=== PATIENT | female | born 1935 | race Caucasian/White ===

== ENCOUNTER 2018-03-10 20:40 | Emergency (ER) | payer MEDICARE, OTHER ==
[2018-03-10 21:03] VITALS: BP 147/65
[2018-03-10] MEDS ORDERED: Sodium Chloride 0.9% 1,000 ML IV ONE ×2 (21:26→23:21)
--- NOTE | 2018-03-10 22:53 | EDM.PDOC ---
ED HPI GENERAL MEDICAL PROBLEM - General Chief Complaint: General Stated Complaint: WEAKNESS Time Seen by Provider: 03/10/18 21:33 Source of Information: Reports: Patient, Family () History Limitations: Reports: No Limitations - History of Present Illness INITIAL COMMENTS - FREE TEXT/NARRATIVE: 83-year-old female presents for evaluation and treatment of weakness and fatigue. Patient reports around 1300 today she started feeling more weak and fatigued. Reports that she couldn't get up from using the bathroom. She denies any fevers, chills, chest pain, shortness of breath, headaches, vomiting, diarrhea or any cough. She reports that she has been experiencing some nausea and increased urinary urgency. No dysuria. 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 She was diagnosed with this in 2012. She has been on chemotherapy for the last 5 years. About a month ago she stopped her chemotherapy and underwent procedure where she had implanted pellets of chemotherapy directly in areas of the masses. She then had embolism to the areas of the tumor. She reports since then she has appreciated fatigue and decreased appetite. Her oncologist is Dr. Cid in [place]. Plan to have a CT scan this coming week. She is supposed to have a PET scan 90 days after the procedure for further evaluation. Reports about one week ago she was not feeling well. She presented to the infusion center and she received fluids. States that she had labs and a chest x- ray done which were all within normal limits. - Related Data Allergies Allergy/AdvReac Type Severity Reaction Status Date / Time dexamethasone Allergy Headache Verified 03/10/18 20:54 naproxen sodium [From Aleve] Allergy Anaphylactic Verified 03/10/18 20:54 Shock Sulfa (Sulfonamide Allergy Hives Verified 03/10/18 20:54 Antibiotics) Home Meds: Home Meds Levothyroxine 50 mcg PO DAILY 12/15/13 [History] Allopurinol [Zyloprim] 300 mg PO DAILY 01/10/16 [History] Aspirin 81 mg PO DAILY 01/10/16 [History] Calcium Carbonate [Calcium] 500 mg PO BID 01/10/16 [History] Gabapentin [Neurontin] 600 mg PO TID 01/10/16 [History] Metoprolol Succinate [Toprol XL] 75 mg PO DAILY 01/10/16 [History] Hewitt-3 Fatty Acids/DHA/EPA [[place] Blue Dha Cap] 1,000 mg PO DAILY [History] Potassium Chloride 20 meq PO DAILY 01/10/16 [History] atorvaSTATin [Lipitor] 10 mg PO DAILY 01/10/16 [History] metFORMIN [Glucophage XR] 500 mg PO BID 01/10/16 [History] oxyCODONE 1 tab PO TID PRN 03/10/18 [History] Cephalexin [Keflex] 500 mg PO BID #10 capsule 03/11/18 [Rx] Past Medical History HEENT History: Reports: Impaired Vision Cardiovascular History: Reports: CAD, Heart Failure, Hypertension Musculoskeletal History: Reports: Arthritis, Gout Endocrine/Metabolic History: Reports: Diabetes, Type II Oncologic (Cancer) History: Reports: Liver, Pancreatic Other Oncologic History: 06/2013 - Past Surgical History HEENT Surgical History: Reports: Cataract Surgery, Tonsillectomy GI Surgical History: Reports: Appendectomy Female Surgical History: Reports: Hysterectomy 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 Denies: Fever, Chills HEENT: Denies: Eye Pain, Throat Pain Respiratory: Denies: Shortness of Breath, Cough Cardiovascular: Denies: Chest Pain GI/Abdominal: Reports: Nausea. Denies: Abdominal Pain, Diarrhea, Vomiting : Reports: Urgency. Denies: Dysuria ED EXAM, GENERAL - Physical Exam Exam: See Below Exam Limited By: No Limitations General Appearance: Alert, WD/WN, No Apparent Distress, Other (Chronically ill- appearing) Ears: Normal External Exam, Normal Canal, Hearing Grossly Normal, Normal TMs Nose: Normal Inspection Throat/Mouth: Normal Inspection, Normal Lips, Normal Voice, No Airway Compromise Respiratory/Chest: No Respiratory Distress, Lungs Clear, Normal Breath Sounds Cardiovascular: Normal Peripheral Pulses, Regular Rate, Rhythm, No Murmur GI/Abdominal: Soft, Non-Tender Neurological: Alert, Oriented, Normal Cognition Psychiatric: Normal Affect, Normal Mood Skin Exam: Warm, Dry, Normal Color EKG INTERPRETATION EKG Date: 03/10/18 Time: 21:35 Rhythm: NSR Rate (Beats/Min): 80 [place]: Normal P-Wave: Present QRS: Normal ST-T: Normal QT: Normal EKG Interpretation Comments: Sinus rhythm at 80bpm. T wave inversion in V1-V4 - can not rule out ischemia. Also III and AVF. Decreased voltage limb lead and precordial leads. Initial poor 'r' progression. First degree AV block. Reviewed by myself and Dr. Felton. Course - Vital Signs Last Recorded V/S: Last Vital Signs Temp 99.6 F 03/10/18 21:00 Pulse 80 03/10/18 21:00 Resp 20 03/10/18 21:00 BP 147/65 H 03/10/18 21:00 Pulse Ox 96 03/10/18 21:00 - Orders/Labs/Meds Labs: Laboratory Tests 03/10/18 03/10/18 03/10/18 Range/Units 22:05 22:05 22:05 WBC 9.47 (3.98-10.04) K/mm3 RBC 3.71 L (3.98-5.22) M/mm3 Hgb 10.6 L (11.2-15.7) gm/L Hct 31.7 L (34.1-44.9) % MCV 85.4 (79.4-94.8) fl MCH 28.6 (25.6-32.2) pg MCHC 33.4 (32.2-35.5) g/dl RDW Std Deviation 52.7 H (36.4-46.3) fL Plt Count 317 (182-369) K/mm3 MPV 10.9 (9.4-12.3) fl Neutrophils % (Manual) 66 H (40-60) % Band Neutrophils % 0 (0-10) % Lymphocytes % (Manual) 25 (20-40) % Atypical Lymphs % 0 % Monocytes % (Manual) 4 (2-10) % Eosinophils % (Manual) 5 (0.7-5.8) % Basophils % (Manual) 0 L (0.1-1.2) Platelet Estimate Adequate Polychromasia 1+ slight Anisocytosis 1+ slight RBC Morph Comment Not Reportable Sodium 132 L (136-145) mEq/L Potassium 3.9 (3.5-5.1) mEq/L Chloride 97 L (98-107) mEq/L Carbon Dioxide 27 (21-32) mEq/L Anion Gap 11.9 (5-15) BUN 8 (7-18) mg/dL Creatinine 0.8 (0.55-1.02) mg/dL Est Cr Clr Drug Dosing 41.62 mL/min Estimated GFR (MDRD) > 60 (>60) mL/min BUN/Creatinine Ratio 10.0 L (14-18) Glucose 122 H (83-115) mg/dL Lactic Acid (0.4-2.0) mmol/L Calcium 9.2 (8.5-10.1) mg/dL Phosphorus 3.7 (2.6-4.7) mg/dL Magnesium 1.7 L (1.8-2.4) mg/dl Total Bilirubin 0.5 (0.2-1.0) mg/dL AST 257 H (15-37) U/L ALT 160 H (14-59) U/L Alkaline Phosphatase 109 (46-116) U/L Troponin I < 0.017 (0.00-0.056) ng/mL Total Protein 7.0 (6.4-8.2) g/dl Albumin 3.0 L (3.4-5.0) g/dl Globulin 4.0 gm/dL Albumin/Globulin Ratio 0.8 L (1-2) Urine Color (Yellow) Urine Appearance (Clear) Urine pH (5.0-8.0) Ur Specific Cecil (1.005-1.030) Urine Protein (Negative) Urine Glucose (UA) (Negative) Urine Ketones (Negative) Urine Occult Blood (Negative) Urine Nitrite (Negative) Urine Bilirubin (Negative) Urine Urobilinogen (0.2-1.0) Ur Leukocyte Esterase (Negative) Urine RBC (0-5) /hpf Urine WBC (0-5) /hpf Ur Epithelial Cells (0-5) /hpf Urine Bacteria (FEW) /hpf Urine Mucus (FEW) /hpf 03/10/18 03/10/18 Range/Units 22:15 23:04 WBC (3.98-10.04) K/mm3 RBC (3.98-5.22) M/mm3 Hgb (11.2-15.7) gm/L Hct (34.1-44.9) % MCV (79.4-94.8) fl MCH (25.6-32.2) pg MCHC (32.2-35.5) g/dl RDW Std Deviation (36.4-46.3) fL Plt Count (182-369) K/mm3 MPV (9.4-12.3) fl Neutrophils % (Manual) (40-60) % Band Neutrophils % (0-10) % Lymphocytes % (Manual) (20-40) % Atypical Lymphs % % Monocytes % (Manual) (2-10) % Eosinophils % (Manual) (0.7-5.8) % Basophils % (Manual) (0.1-1.2) Platelet Estimate Polychromasia Anisocytosis RBC Morph Comment Sodium (136-145) mEq/L Potassium (3.5-5.1) mEq/L Chloride (98-107) mEq/L Carbon Dioxide (21-32) mEq/L Anion Gap (5-15) BUN (7-18) mg/dL Creatinine (0.55-1.02) mg/dL Est Cr Clr Drug Dosing mL/min Estimated GFR (MDRD) (>60) mL/min BUN/Creatinine Ratio (14-18) Glucose (83-115) mg/dL Lactic Acid 0.7 (0.4-2.0) mmol/L Calcium (8.5-10.1) mg/dL Phosphorus (2.6-4.7) mg/dL Magnesium (1.8-2.4) mg/dl Total Bilirubin (0.2-1.0) mg/dL AST (15-37) U/L ALT (14-59) U/L Alkaline Phosphatase (46-116) U/L Troponin I (0.00-0.056) ng/mL Total Protein (6.4-8.2) g/dl Albumin (3.4-5.0) g/dl Globulin gm/dL Albumin/Globulin Ratio (1-2) Urine Color Yellow (Yellow) Urine Appearance Clear (Clear) Urine pH 6.5 (5.0-8.0) Ur Specific Cecil 1.015 (1.005-1.030) Urine Protein Negative (Negative) Urine Glucose (UA) Negative (Negative) Urine Ketones Negative (Negative) Urine Occult Blood 1+ H (Negative) Urine Nitrite Negative (Negative) Urine Bilirubin Negative (Negative) Urine Urobilinogen 0.2 (0.2-1.0) Ur Leukocyte Esterase 1+ H (Negative) Urine RBC 0-5 (0-5) /hpf Urine WBC 5-10 H (0-5) /hpf Ur Epithelial Cells 0-5 (0-5) /hpf Urine Bacteria Few (FEW) /hpf Urine Mucus Not seen (FEW) /hpf Meds: Medications Discontinued Medications Generic Name Dose Route Start Last Admin Trade Name Jean PRN Reason Stop Dose Admin Heparin Sodium (Porcine) Confirm 03/10/18 22:05 Heparin Lock Flush 100 Units/Ml Administered 03/10/18 22:06 Dose 500 units .ROUTE .STK-MED ONE Heparin Sodium (Porcine) Confirm 03/11/18 01:20 Heparin Lock Flush 100 Units/Ml Administered 03/11/18 01:21 Dose 500 units .ROUTE .STK-MED ONE Sodium Chloride 1,000 mls @ 999 mls/hr 03/10/18 21:26 03/10/18 22:15 Normal Saline IV 03/10/18 22:26 999 mls/hr ONETIME ONE Administration Magnesium Sulfate/Dextrose 1 100 mls @ 100 mls/hr 03/10/18 22:49 03/10/18 23: 09 gm/ Premix IV 03/10/18 23:48 100 mls/hr ONETIME ONE Administration Sodium Chloride 1,000 mls @ 999 mls/hr 03/10/18 23:21 03/10/18 23:58 Normal Saline IV 03/11/18 00:21 999 mls/hr ONETIME ONE Administration Ceftriaxone Sodium 2 gm/ 100 mls @ 100 mls/hr 03/10/18 23:30 03/11/18 00:14 Sodium Chloride IV 03/11/18 00:29 100 mls/hr ONETIME ONE Administration - Radiology Interpretation Free Text/Narrative:: chest 1 view shows no acute intrathoracic process - Re-Assessments/Exams Free Text/Narrative Re-Assessment/Exam: 03/11/18 00:26 I reviewed the labs, EKG and imaging with the patient. I will treat her for UTI given her symptoms and 1+ leuks on UA. Urine has been sent for culture. Blood cultures are pending. She has received 1 g IV magnesium. Will start 2 g IV Rocephin give her second bolus of fluids. I discussed her disposition. I feel it would be appropriate for her to come into the hospital due to her weakness. She declines and would like to go home tonight. I will send her home with some Keflex and close follow-up in the clinic. Discharge instructions as documented. Departure - Departure Time of Disposition: 00:30 Disposition: Home, Self-Care 01 Condition: Fair Clinical Impression: Weakness UTI (urinary tract infection) Qualifiers: Urinary tract infection type: acute cystitis Hematuria presence: without hematuria Qualified Code(s): N30.00 - Acute cystitis without hematuria - Discharge Information *PRESCRIPTION DRUG MONITORING PROGRAM REVIEWED*: No *COPY OF PRESCRIPTION DRUG MONITORING REPORT IN PATIENT SANTIAGO: No Prescriptions: Cephalexin [Keflex] 500 mg PO BID #10 capsule Instructions: Weakness, [id number], Urinary Tract Infection, Adult Referrals: Mariola Alarcon NP [Primary Care Provider] - Mike Cid MD [Ordering Only Provider] - Forms: ED Department Discharge Additional Instructions: Go home and rest. Make sure you are drinking plenty of fluids. Keflex 1 tab PO bid x 5 days. Follow-up with your PCP this week for a recheck of your symptoms. Please return to the ER should your symptoms change or worsen.
[2018-03-10] MEDS ORDERED: cefTRIAXone 2 GM in Sodium Chloride 0.9% 100 ML IV ONE (23:30)
--- NOTE | 2018-03-13 12:08 | CR ---
Chest: Portable view of the chest is obtained. Comparison: Prior chest x-ray of 02/05/14. Heart is slightly enlarged. Lungs are clear without acute parenchymal change. Infusion port is seen entering from the left side. Bony structures show scoliosis and mild degenerative change within the spine. Surgical clips are seen at the base of the neck. Findings compatible with chronic rotator cuff tear is seen within the right shoulder. Impression: 1. Findings as noted above. Nothing acute is appreciated. Diagnostic code #2
== END 2018-03-11 01:37 | disposition home or self-care (01) ==
LOC: JD.ED 20:40
DX: N30.00 Acute cystitis without hematuria (principal); R53.1 Weakness; C25.9 Malignant neoplasm of pancreas, unspecified; C78.7 Secondary malignant neoplasm of liver and intrahepatic bile duct; I11.0 Hypertensive heart disease with heart failure; I50.9 Heart failure, unspecified; E11.9 Type 2 diabetes mellitus without complications; Z87.891 Personal history of nicotine dependence; Z79.82 Long term (current) use of aspirin; Z79.84 Long term (current) use of oral hypoglycemic drugs; Z88.2 Allergy status to sulfonamides; Z79.899 Other long term (current) drug therapy; Z88.8 Allergy status to other drugs, medicaments and biological substances
CPT/HCPCS: 36415; 71045; 80053; 81001; 83605; 83735; 84100; 84484; 85007; 85027; 87040; 87086; 93005; 96361; 96365; 96367; 99285; J0696; J3475; J7030; J7040

== ENCOUNTER 2018-10-07 13:55 | Emergency (ER) | payer MEDICARE, OTHER ==
[2018-10-07 14:23] VITALS: BP 117/90
[2018-10-07] MEDS ORDERED: Sodium Chloride 0.9% 500 ML IV ONE (14:29)
--- NOTE | 2018-10-07 14:35 | EDM.PDOC ---
ED HPI GENERAL MEDICAL PROBLEM - General Chief Complaint: Cardiovascular Problem Stated Complaint: RAPID HEART RATE Time Seen by Provider: 10/07/18 14:14 Source of Information: Reports: Patient History Limitations: Reports: No Limitations - History of Present Illness INITIAL COMMENTS - FREE TEXT/NARRATIVE: Patient is a 83-year-old female with a history of stage IV pancreatic cancer who presents ED complaining of shortness of breath with exertion, intermittent chest pressure, and a fast heart rate. Patient states Sunday evening she awoke with a sensation her heart was beating fast. Stated her heart beat was pounding and developed mild pressure to her midsternal region. The pressure to the chest has diminished. She has no chest pain with admission. States she is still short of breath with exertion. She recently started a new chemotherapy medication this past Sunday and received her first dose. She developed a rash and was started on a Medrol Dosepak. She completed a Medrol Dosepak with no complications. She does have a history of adverse reaction with dexamethasone . States she gets a headache. She has slight headache at this time. She has a previous history with similar symptoms of a fast heart rate that went away on its own accord. She does have a significant history of coronary disease and per retail selling floor leader states she would benefit from cardiac stent placement. Due to her cancer hx this has not been able to be completed. She also notes sensation with night sweats. She also has a history of hypertension, hypercholesteremia, and borderline diabetes. She has no history of DVT or PE. She denies any pain or swelling to her lower extremities. Denies any orthopnea or PND. She has trace edema noted to lower extremities. Denies any increased weight. She was diagnosed with pancreatic cancer 5 years ago. She also denies cough, hemoptysis , abdominal pain, dysuria, hematuria, dark tarry stools, bloody stools, or any additional complaints. - Related Data Allergies Allergy/AdvReac Type Severity Reaction Status Date / Time dexamethasone Allergy Headache Verified 10/07/18 19:14 naproxen sodium [From Aleve] Allergy Anaphylactic Verified 10/07/18 19:14 Shock Sulfa (Sulfonamide Allergy Hives Verified 10/07/18 19:14 Antibiotics) Home Meds: Home Meds Levothyroxine 50 mcg PO DAILY 12/15/13 [History] Allopurinol [Zyloprim] 300 mg PO DAILY 01/10/16 [History] Aspirin 81 mg PO DAILY 01/10/16 [History] Metoprolol Succinate [Toprol XL] 50 mg PO DAILY 01/10/16 [History] Potassium Chloride 10 meq PO BID 01/10/16 [History] atorvaSTATin [Lipitor] 10 mg PO DAILY 01/10/16 [History] metFORMIN [Glucophage XR] 500 mg PO DAILY 01/10/16 [History] oxyCODONE 5 mg PO Q6H PRN 03/10/18 [History] Calcium Citrate/Vitamin D3 [Calcium Citrate - Vit D3 Tab] 250 - 315 mg PO DAILY 10/07/18 [History] Capecitabine 1,000 mg PO PCDINNER 10/07/18 [History] Capecitabine 1,500 mg PO PCBREAKFAST 10/07/18 [History] Garlic [Garlic Oil] 1,000 mg PO DAILY 10/07/18 [History] Ketamine Hcl [Ketamine Oral Solution Compound] 5 ml PO QID 10/07/18 [History] Lidocaine Viscous 5 ml PO Q6H PRN 10/07/18 [History] Loperamide [Imodium] 4 mg PO ASDIRECTED PRN 10/07/18 [History] Losartan [Cozaar] 50 mg PO BID 10/07/18 [History] Megestrol [Megace 40 MG/ML Susp] 800 mg PO DAILY 10/07/18 [History] Ondansetron [Zofran ODT] 4 mg PO TID PRN 10/07/18 [History] amLODIPine Besylate [Amlodipine Besylate] 5 mg PO DAILY 10/07/18 [History] Past Medical History HEENT History: Reports: Impaired Vision Cardiovascular History: Reports: CAD, Heart Failure, Hypertension Musculoskeletal History: Reports: Arthritis, Gout Endocrine/Metabolic History: Reports: Diabetes, Type II Oncologic (Cancer) History: Reports: Liver, Pancreatic Other Oncologic History: 06/2013 - Past Surgical History HEENT Surgical History: Reports: Cataract Surgery, Tonsillectomy GI Surgical History: Reports: Appendectomy Female Surgical History: Reports: Hysterectomy Endocrine Surgical History: Reports: Pituitary Tumor Resection Musculoskeletal Surgical History: Reports: Knee Replacement Social & Family History - Family History Cardiac: Reports: Bypass, CAD Neurological: Reports: CVA - Caffeine Use Caffeine Use: Reports: Coffee, Tea ED ROS GENERAL - Review of Systems Review Of Systems: See Below Constitutional: Reports: Fever, Chills, Malaise, Decreased Appetite HEENT: Reports: No Symptoms Respiratory: Reports: Shortness of Breath. Denies: Pleuritic Chest Pain, Cough , Sputum, Hemoptysis Cardiovascular: Reports: Chest Pain (pressure), Dyspnea on Exertion. Denies: Edema, Lightheadedness, Orthopnea, Palpitations, PND, Syncope GI/Abdominal: Reports: No Symptoms : Reports: No Symptoms Musculoskeletal: Reports: No Symptoms Neurological: Reports: No Symptoms ED EXAM, GENERAL - Physical Exam Exam: See Below Exam Limited By: No Limitations General Appearance: Alert, WD/WN, No Apparent Distress Eye Exam: Bilateral Eye: Normal Inspection Ears: Hearing Grossly Normal Nose: Normal Inspection Throat/Mouth: Normal Voice, No Airway Compromise, Other (moist oral mucosa. ) Neck: Normal Inspection, Supple Respiratory/Chest: No Respiratory Distress, Lungs Clear, Normal Breath Sounds, No Accessory Muscle Use, Chest Non-Tender, Other (Maris Cath left chest. ) Cardiovascular: Normal Peripheral Pulses, No Edema, No Murmur (obvious), Irregularly Irregular Peripheral Pulses: 2+: Radial (L), Radial (R) GI/Abdominal: Normal Bowel Sounds, Soft, Non-Tender, No Organomegaly, No Distention Back Exam: Normal Inspection Extremities: Normal Inspection, Normal Range of Motion, Non-Tender, No Pedal Edema Neurological: Alert, Oriented, CN II-XII Intact, Normal Cognition, No Motor/ Sensory Deficits Psychiatric: Normal Affect, Normal Mood Course - Vital Signs Last Recorded V/S: Last Vital Signs Temp 96.6 F 10/07/18 14:05 Pulse 134 H 10/07/18 14:05 Resp 20 10/07/18 14:05 BP 117/90 10/07/18 14:05 Pulse Ox 100 10/07/18 14:05 Orthostatic Blood Pressure [ 102/70 Standing] Orthostatic Blood Pressure [ 116/99 Sitting] Orthostatic Blood Pressure [ 120/80 Supine] - Orders/Labs/Meds Orders: Active Orders 24 hr Category Date Time Status EKG 12 Lead [EKG Documentation Completion] [RC] STAT Care 10/07/18 18:07 Active EKG Documentation Completion [RC] STAT Care 10/07/18 14:28 Active EKG Documentation Completion [RC] STAT Care 10/07/18 19:15 Active Orthostatic Vital Signs [RC] ASDIRECTED Care 10/07/18 14:28 Active Peripheral IV Care [RC] . DIRECTED Care 10/07/18 14:29 Active CBC W/O DIFF,HEMOGRAM [HEME] MOTH@0700 Lab 10/10/18 07:00 Ordered CBC W/O DIFF,HEMOGRAM [HEME] MOTH@0700 Lab 10/14/18 07:00 Ordered CBC W/O DIFF,HEMOGRAM [HEME] MOTH@0700 Lab 10/17/18 07:00 Ordered CBC W/O DIFF,HEMOGRAM [HEME] MOTH@0700 Lab 10/21/18 07:00 Ordered CBC W/O DIFF,HEMOGRAM [HEME] MOTH@0700 Lab 10/24/18 07:00 Ordered CBC W/O DIFF,HEMOGRAM [HEME] MOTH@0700 Lab 10/28/18 07:00 Ordered CULTURE BLOOD [BC] Stat Lab 10/07/18 15:05 Received CULTURE BLOOD [BC] Stat Lab 10/07/18 15:11 Received INR,PT,PROTHROMBIN TIME [COAG] Stat Lab 10/07/18 20:34 Received PTT,PARTIAL THROMBOPLSTIN TIME [COAG] Stat Lab 10/07/18 20:34 Received Diltiazem 125 mg Med 10/07/18 17:30 Active Sodium Chloride 0.9% [Normal Saline] 100 ml IV TITRATE Heparin Sodium/D5W [Heparin 25,000 Units in D5W 500 ML] Med 10/07/18 19:59 Active 25,000 units in 500 ml IV ASDIRECTED Sodium Chloride 0.9% [Normal Saline] 100 ml Med 10/07/18 16:30 Active IV ASDIRECTED Sodium Chloride 0.9% [Saline Flush] Med 10/07/18 14:29 Active 10 ml FLUSH ASDIRECTED PRN Blood Culture x2 Reflex Set [OM.PC] Stat Oth 10/07/18 14:31 Ordered Peripheral IV Insertion Adult [OM.PC] Routine Oth 10/07/18 14:29 Ordered Medication Orders Sodium Chloride (Normal Saline) 100 mls @ 60 mls/hr IV ASDIRECTED ZENOBIA Last Admin: 10/07/18 16:49 Dose: 60 mls/hr Diltiazem HCl 125 mg/ Sodium (Chloride) 125 mls @ 5 mls/hr IV TITRATE ZENOBIA; Protocol Last Admin: 10/07/18 18:15 Dose: 5 mg/hr, 5 mls/hr Heparin Sodium/Dextrose (Heparin 25,000 Units In D5w 500 Ml) 25,000 units in 500 mls @ 26.127 mls/hr IV ASDIRECTED ONE Stop: 10/08/18 15:07 Last Admin: 10/07/18 20:31 Dose: 18 units/kg/hr, 26.127 mls/hr Sodium Chloride (Saline Flush) 10 ml FLUSH ASDIRECTED PRN PRN Reason: Keep Vein Open Last Admin: 10/07/18 16:49 Dose: 10 ml Admin: 10/07/18 16:21 Dose: 10 ml Labs: Laboratory Tests 10/07/18 10/07/18 10/07/18 Range/Units 15:05 15:05 15:05 WBC 12.96 H (3.98-10.04) K/mm3 RBC 3.43 L (3.98-5.22) M/mm3 Hgb 12.4 (11.2-15.7) gm/L Hct 36.8 (34.1-44.9) % MCV 107.3 H (79.4-94.8) fl MCH 36.2 H (25.6-32.2) pg MCHC 33.7 (32.2-35.5) g/dl RDW Std Deviation 72.8 H (36.4-46.3) fL Plt Count 302 (182-369) K/mm3 MPV 11.9 (9.4-12.3) fl Neutrophils % (Manual) 65 H (40-60) % Band Neutrophils % 0 (0-10) % Lymphocytes % (Manual) 25 (20-40) % Atypical Lymphs % 0 % Monocytes % (Manual) 10 (2-10) % Eosinophils % (Manual) 0 L (0.7-5.8) % Basophils % (Manual) 0 L (0.1-1.2) Platelet Estimate Adequate Poikilocytosis 1+ slight Anisocytosis 2+ moderate Macrocytosis 2+ moderate Ovalocytes 1+ slight RBC Morph Comment Not Reportable D-Dimer, Quantitative 15.86 H (0.19-0.50) mg/L Sodium 140 (136-145) mEq/L Potassium 3.7 (3.5-5.1) mEq/L Chloride 106 (98-107) mEq/L Carbon Dioxide 21 (21-32) mEq/L Anion Gap 16.7 H (5-15) BUN 33 H (7-18) mg/dL Creatinine 1.5 H (0.55-1.02) mg/dL Est Cr Clr Drug Dosing 23.26 mL/min Estimated GFR (MDRD) 33 (>60) mL/min BUN/Creatinine Ratio 22.0 H (14-18) Glucose 100 (83-115) mg/dL Lactic Acid (0.4-2.0) mmol/L Calcium 7.6 L (8.5-10.1) mg/dL Magnesium (1.8-2.4) mg/dl Total Bilirubin 0.4 (0.2-1.0) mg/dL AST 126 H (15-37) U/L ALT 183 H (14-59) U/L Alkaline Phosphatase 296 H (46-116) U/L Troponin I (0.00-0.056) ng/mL C-Reactive Protein 0.8 (<1.0) mg/dL NT-Pro-B Natriuret Pep (0-450) pg/mL Total Protein 6.8 (6.4-8.2) g/dl Albumin 3.4 (3.4-5.0) g/dl Globulin 3.4 gm/dL Albumin/Globulin Ratio 1.0 (1-2) TSH 3rd Generation (0.358-3.74) uIU/mL Urine Color (Yellow) Urine Appearance (Clear) Urine pH (5.0-8.0) Ur Specific [place] (1.005-1.030) Urine Protein (Negative) Urine Glucose (UA) (Negative) Urine Ketones (Negative) Urine Occult Blood (Negative) Urine Nitrite (Negative) Urine Bilirubin (Negative) Urine Urobilinogen (0.2-1.0) Ur Leukocyte Esterase (Negative) Urine RBC (0-5) /hpf Urine WBC (0-5) /hpf Ur Epithelial Cells Ur Squamous Epith Cells (0-5) /hpf Urine Bacteria (FEW) /hpf Urine Mucus (FEW) /hpf 10/07/18 10/07/18 10/07/18 Range/Units 15:05 15:05 15:05 WBC (3.98-10.04) K/mm3 RBC (3.98-5.22) M/mm3 Hgb (11.2-15.7) gm/L Hct (34.1-44.9) % MCV (79.4-94.8) fl MCH (25.6-32.2) pg MCHC (32.2-35.5) g/dl RDW Std Deviation (36.4-46.3) fL Plt Count (182-369) K/mm3 MPV (9.4-12.3) fl Neutrophils % (Manual) (40-60) % Band Neutrophils % (0-10) % Lymphocytes % (Manual) (20-40) % Atypical Lymphs % % Monocytes % (Manual) (2-10) % Eosinophils % (Manual) (0.7-5.8) % Basophils % (Manual) (0.1-1.2) Platelet Estimate Poikilocytosis Anisocytosis Macrocytosis Ovalocytes RBC Morph Comment D-Dimer, Quantitative (0.19-0.50) mg/L Sodium (136-145) mEq/L Potassium (3.5-5.1) mEq/L Chloride (98-107) mEq/L Carbon Dioxide (21-32) mEq/L Anion Gap (5-15) BUN (7-18) mg/dL Creatinine (0.55-1.02) mg/dL Est Cr Clr Drug Dosing mL/min Estimated GFR (MDRD) (>60) mL/min BUN/Creatinine Ratio (14-18) Glucose (83-115) mg/dL Lactic Acid 2.2 H (0.4-2.0) mmol/L Calcium (8.5-10.1) mg/dL Magnesium 2.1 (1.8-2.4) mg/dl Total Bilirubin (0.2-1.0) mg/dL AST (15-37) U/L ALT (14-59) U/L Alkaline Phosphatase (46-116) U/L Troponin I < 0.017 (0.00-0.056) ng/mL C-Reactive Protein (<1.0) mg/dL NT-Pro-B Natriuret Pep 6329 H (0-450) pg/mL Total Protein (6.4-8.2) g/dl Albumin (3.4-5.0) g/dl Globulin gm/dL Albumin/Globulin Ratio (1-2) TSH 3rd Generation 0.761 (0.358-3.74) uIU/mL Urine Color (Yellow) Urine Appearance (Clear) Urine pH (5.0-8.0) Ur Specific [place] (1.005-1.030) Urine Protein (Negative) Urine Glucose (UA) (Negative) Urine Ketones (Negative) Urine Occult Blood (Negative) Urine Nitrite (Negative) Urine Bilirubin (Negative) Urine Urobilinogen (0.2-1.0) Ur Leukocyte Esterase (Negative) Urine RBC (0-5) /hpf Urine WBC (0-5) /hpf Ur Epithelial Cells Ur Squamous Epith Cells (0-5) /hpf Urine Bacteria (FEW) /hpf Urine Mucus (FEW) /hpf 10/07/18 Range/Units 18:10 WBC (3.98-10.04) K/mm3 RBC (3.98-5.22) M/mm3 Hgb (11.2-15.7) gm/L Hct (34.1-44.9) % MCV (79.4-94.8) fl MCH (25.6-32.2) pg MCHC (32.2-35.5) g/dl RDW Std Deviation (36.4-46.3) fL Plt Count (182-369) K/mm3 MPV (9.4-12.3) fl Neutrophils % (Manual) (40-60) % Band Neutrophils % (0-10) % Lymphocytes % (Manual) (20-40) % Atypical Lymphs % % Monocytes % (Manual) (2-10) % Eosinophils % (Manual) (0.7-5.8) % Basophils % (Manual) (0.1-1.2) Platelet Estimate Poikilocytosis Anisocytosis Macrocytosis Ovalocytes RBC Morph Comment D-Dimer, Quantitative (0.19-0.50) mg/L Sodium (136-145) mEq/L Potassium (3.5-5.1) mEq/L Chloride (98-107) mEq/L Carbon Dioxide (21-32) mEq/L Anion Gap (5-15) BUN (7-18) mg/dL Creatinine (0.55-1.02) mg/dL Est Cr Clr Drug Dosing mL/min Estimated GFR (MDRD) (>60) mL/min BUN/Creatinine Ratio (14-18) Glucose (83-115) mg/dL Lactic Acid (0.4-2.0) mmol/L Calcium (8.5-10.1) mg/dL Magnesium (1.8-2.4) mg/dl Total Bilirubin (0.2-1.0) mg/dL AST (15-37) U/L ALT (14-59) U/L Alkaline Phosphatase (46-116) U/L Troponin I (0.00-0.056) ng/mL C-Reactive Protein (<1.0) mg/dL NT-Pro-B Natriuret Pep (0-450) pg/mL Total Protein (6.4-8.2) g/dl Albumin (3.4-5.0) g/dl Globulin gm/dL Albumin/Globulin Ratio (1-2) TSH 3rd Generation (0.358-3.74) uIU/mL Urine Color Yellow (Yellow) Urine Appearance Clear (Clear) Urine pH 6.0 (5.0-8.0) Ur Specific [place] 1.010 (1.005-1.030) Urine Protein Negative (Negative) Urine Glucose (UA) Negative (Negative) Urine Ketones Negative (Negative) Urine Occult Blood Negative (Negative) Urine Nitrite Negative (Negative) Urine Bilirubin Negative (Negative) Urine Urobilinogen 0.2 (0.2-1.0) Ur Leukocyte Esterase 1+ H (Negative) Urine RBC 0-5 (0-5) /hpf Urine WBC 5-10 H (0-5) /hpf Ur Epithelial Cells Not Reportable Ur Squamous Epith Cells 0-5 (0-5) /hpf Urine Bacteria Few (FEW) /hpf Urine Mucus Not seen (FEW) /hpf Meds: Medications Generic Name Dose Route Start Last Admin Trade Name Freq PRN Reason Stop Dose Admin Sodium Chloride 100 mls @ 60 mls/hr 10/07/18 16:30 10/07/18 16:49 Normal Saline IV 60 mls/hr ASDIRECTED ZENOBIA Administration Diltiazem HCl 125 mg/ Sodium 125 mls @ 5 mls/hr 10/07/18 17:30 10/07/18 18:15 Chloride IV 5 mg/hr TITRATE ZENOBIA 5 mls/hr Administration Protocol 5 MG/HR Heparin Sodium/Dextrose 25,000 units in 500 mls @ 26.127 mls/hr 10/07/18 19: 59 10/07/18 20:31 Heparin 25,000 Units In D5w 500 Ml IV 10/08/18 15:07 18 units/kg/hr ASDIRECTED ONE 26.127 mls/hr Administration 18 UNITS/KG/HR Sodium Chloride 10 ml 10/07/18 14:29 10/07/18 16:49 Saline Flush FLUSH 10 ml ASDIRECTED PRN Administration Keep Vein Open Discontinued Medications Generic Name Dose Route Start Last Admin Trade Name Jean PRN Reason Stop Dose Admin Diltiazem HCl 5 mg 10/07/18 17:21 10/07/18 17:49 Cardizem IVPUSH 10/07/18 17:22 5 mg ONETIME ONE Administration Diltiazem HCl 5 mg 10/07/18 18:26 10/07/18 20:54 Cardizem IVPUSH 10/07/18 18:27 Not Given ONETIME ONE Heparin Sodium (Porcine) 5,000 units 10/07/18 19:57 10/07/18 20:28 Heparin Sodium IVPUSH 10/07/18 19:58 5,000 units ONETIME ONE Administration Sodium Chloride 500 mls @ 999 mls/hr 10/07/18 14:29 10/07/18 14:50 Normal Saline IV 10/07/18 14:59 999 mls/hr .BOLUS ONE Administration Iopamidol 100 ml 10/07/18 16:24 10/07/18 16:49 Isovue-370 (76%) IVPUSH 10/07/18 16:25 100 ml ONETIME ONE Administration - Re-Assessments/Exams Free Text/Narrative Re-Assessment/Exam: Differential diagnosis: New-onset atrial fibrillation, DE, PE, dehydration, sepsis, anemia, and/or hyperthyroidism. On examination blood pressure 117/90 heart rate 135 narrow complex, SPO2 100%. This was laying down. Orthostatic vital signs were positive. She was quite winded with body position changes. She denies any chest pain. IV established with 500 mL normal saline IV fluid bolus. Labs and studies to include: CBC, chem 14, CRP, blood cultures 2, d-dimer, I discussed, magnesium level, troponin, UA, chest x-ray one view, TSH, FT4, Pro BNP, and EKG. Labs reviewed: Chemistry panel indicated sodium 140, potassium 3.7, AG is 16.7, BUN 33, creatinine elevated 1.5, glucose 100, lactic acid elevated 2.2, calcium 7.61, magnesium 2.1, AST ALT and alkaline phosphatase are all elevated, troponin normal, CRP normal, proBNP is 6329, TSH within normal limits. CBC indicated White blood cell count 12.96, hemoglobin 12.4, MCV 107.3, neutrophil percentage is 65, neutrophil bands 0. Suspect elevation of white blood cell count is secondary to the steroid use. Lactic acid is 2.2. She is afebrile. She has no infectious complaints. Do not have a baseline for BNP. Patient has a history of congestive heart failure. She is not in fluid overload. Denies any PND, orthopnea, recent weight gain, or increased swelling to her lower extremities. 10/07/18 16:15 d-dimer 15.86. CTA of the chest has been ordered. Reassessment, patient has no complaints. Heart rate 130s, SPO2 97% on room air, BP 119/88. 10/07/18 17:18 CT chest impression: Mild amount of thrombus as described above compatible with pulmonary emboli. Liver masses most likely metastatic in etiology. This is an interval change from previous CT study of 02/09/14. Other incidental findings as noted above. Discussed results of CTA with Dr. Solis. Ordered cardizem 5mg IVP and 5mg/hr gtt. 10/07/18 18:00 BP 115/70 with HR 102. Attempted to call Dr. James internal control manager hospitalist. He did not answer. Will try again in the next 15 minutes. 10/07/18 18:26 Blood pressure 112/91 heart rate 110 to 126 variable. SPO2 99% on room air. I have ordered another Cardizem 5mg IVP. I have had nursing staff call Dr. James with no answer. 10/07/18 18:51 Nursing staff has called Dr. Calvert. He has instructed nursing staff to call Dr. James. It is his turn to admit since he took the last patient. Discussed patient with Dr. James and he has requested patient be transported to [place]. [address] [facility]. I did speak with Dr. Briggs and Dr. Interiano. Suggested starting patient on heparin gtt with bolus. They have agreed to direct admit patient. Patient's blood pressure was 120/83, heart rate 102, SPO2 96% on room air. 2004 BP 120/83, heart rate 135, SPO2 100%. Will increase the Cardizem to 10 mg per hour. Ambulance has been paged for transport. 2033 EMS has arrived for transport. BP 137/99, heart rate 102, SPO2 96% on room air. She has no complaints. Departure - Departure Time of Disposition: 17:30 Disposition: DC/Tfer to Acute Hospital 02 Reason for Transfer *Q: Other Condition: Fair Clinical Impression: Elevated LFTs, Pancreatic cancer metastasized to liver, Atrial flutter with rapid ventricular response Pulmonary embolism Qualifiers: Pulmonary embolism type: unspecified Chronicity: acute Acute cor pulmonale presence: without acute cor pulmonale Qualified Code(s): I26.99 - Other pulmonary embolism without acute cor pulmonale Referrals: Isabell Berg MD [Primary Care Provider] - Forms: ED Department Discharge - My Orders Last 24 Hours: My Active Orders 10/07/18 14:28 EKG Documentation Completion [RC] STAT Orthostatic Vital Signs [RC] ASDIRECTED 10/07/18 14:29 Peripheral IV Care [RC] . DIRECTED Sodium Chloride 0.9% [Saline Flush] 10 ml FLUSH ASDIRECTED PRN Peripheral IV Insertion Adult [OM.PC] Routine 10/07/18 14:31 Blood Culture x2 Reflex Set [OM.PC] Stat 10/07/18 15:05 CULTURE BLOOD [BC] Stat 10/07/18 15:11 CULTURE BLOOD [BC] Stat 10/07/18 16:30 Sodium Chloride 0.9% [Normal Saline] 100 ml IV ASDIRECTED 10/07/18 17:30 Diltiazem 125 mg Sodium Chloride 0.9% [Normal Saline] 100 ml IV TITRATE 10/07/18 18:07 EKG 12 Lead [EKG Documentation Completion] [RC] STAT 10/07/18 19:15 EKG Documentation Completion [RC] STAT 10/07/18 19:59 Heparin Sodium/D5W [Heparin 25,000 Units in D5W 500 ML] 25,000 units in 500 ml IV ASDIRECTED 10/07/18 20:34 INR,PT,PROTHROMBIN TIME [COAG] Stat PTT,PARTIAL THROMBOPLSTIN TIME [COAG] Stat 10/10/18 07:00 CBC W/O DIFF,HEMOGRAM [HEME] MOTH@0710/14/18 07:00 CBC W/O DIFF,HEMOGRAM [HEME] MOTH@69910/17/18 07:00 CBC W/O DIFF,HEMOGRAM [HEME] MOTH@69910/21/18 07:00 CBC W/O DIFF,HEMOGRAM [HEME] MOTH@69910/24/18 07:00 CBC W/O DIFF,HEMOGRAM [HEME] MOTH@69910/28/18 07:00 CBC W/O DIFF,HEMOGRAM [HEME] MOTH@699 - Assessment/Plan Last 24 Hours: My Active Orders 10/07/18 14:28 EKG Documentation Completion [RC] STAT Orthostatic Vital Signs [RC] ASDIRECTED 10/07/18 14:29 Peripheral IV Care [RC] . DIRECTED Sodium Chloride 0.9% [Saline Flush] 10 ml FLUSH ASDIRECTED PRN Peripheral IV Insertion Adult [OM.PC] Routine 10/07/18 14:31 Blood Culture x2 Reflex Set [OM.PC] Stat 10/07/18 15:05 CULTURE BLOOD [BC] Stat 10/07/18 15:11 CULTURE BLOOD [BC] Stat 10/07/18 16:30 Sodium Chloride 0.9% [Normal Saline] 100 ml IV ASDIRECTED 10/07/18 17:30 Diltiazem 125 mg Sodium Chloride 0.9% [Normal Saline] 100 ml IV TITRATE 10/07/18 18:07 EKG 12 Lead [EKG Documentation Completion] [RC] STAT 10/07/18 19:15 EKG Documentation Completion [RC] STAT 10/07/18 19:59 Heparin Sodium/D5W [Heparin 25,000 Units in D5W 500 ML] 25,000 units in 500 ml IV ASDIRECTED 10/07/18 20:34 INR,PT,PROTHROMBIN TIME [COAG] Stat PTT,PARTIAL THROMBOPLSTIN TIME [COAG] Stat 10/10/18 07:00 CBC W/O DIFF,HEMOGRAM [HEME] MOTH@0700 10/14/18 07:00 CBC W/O DIFF,HEMOGRAM [HEME] MOTH@00 10/17/18 07:00 CBC W/O DIFF,HEMOGRAM [HEME] MOTH@69910/21/18 07:00 CBC W/O DIFF,HEMOGRAM [HEME] MOTH@69910/24/18 07:00 CBC W/O DIFF,HEMOGRAM [HEME] MOTH@69910/28/18 07:00 CBC W/O DIFF,HEMOGRAM [HEME] MOTH@699
--- NOTE | 2018-10-07 16:08 | CR ---
Chest: Portable view of the chest was obtained. Comparison: Prior chest x-ray of 03/10/18. Heart is enlarged. Lungs are clear. Scoliosis and degenerative change are noted within the spine. Left-sided infusion port is seen. Surgical clips are seen at the base of the neck. Impression: 1. Cardiomegaly. Other incidental findings. 2. Nothing acute is seen. Diagnostic code #2
[2018-10-07] MEDS: Sodium Chloride 0.9% 10 ML Syringe FLUSH PRN ×2 (16:21→16:49)
[2018-10-07] MEDS ORDERED: Iopamidol 755 Mg/ML 100 ML Bottle IVPUSH ONE (16:24)
[2018-10-07] MEDS ORDERED: Sodium Chloride 0.9% 100 ML IV SCH (16:30)
--- NOTE | 2018-10-07 17:14 | CT ---
Addendum: Voice recognition error is identified within the third paragraph under findings: There is a sentence within the third paragraph that states no acute parenchymal change..., this corrected sentence is as follows: No acute parenchymal change is appreciated within either lung. --- Addendum1 above dictated on [10/08/2018 16:28] by [Alexandr Cohen Hilton J.] --- --- Addendum1 above signed on [10/08/2018 16:29] by [Alexandr Cohen Hilton J.] --- --- Original report below dictated on [10/07/2018 17:10] by [Alexandr Cohen Hilton J.] --- --- Original report below signed on [10/07/2018 17:10] by [Alexandr Cohen Hilton J.] --- CT chest Technique: Multiple axial sections through the chest were obtained. Study performed as a pulmonary angiogram protocol. Intravenous contrast was therefore utilized. Comparison: Findings: Small segmental pulmonary emboli are seen within the right upper lung and within the right lower lung. Some extension into the subsegmental branches within the right lower lung as well as right middle lobe are seen. Probable small amount of left lower lung clot is also present. Coronary artery calcification is seen. Atherosclerotic calcification is noted within the thoracic aorta. Heart is enlarged. Mediastinum and hilar regions show no adenopathy. No axillary adenopathy is seen. Small portion of the visualized upper abdominal structures shows multiple liver masses within the right lobe with largest measuring approximately 4.4 cm which is suspicious for liver metastatic disease. This finding is an interval change from prior CT abdomen study. Mild bibasilar interstitial change is seen likely representing fibrosis. No acute parenchymal change is appreciated within a regular lung. Bone window settings were reviewed which shows degenerative change. Scoliosis. No acute osseous abnormality is appreciated. Impression: 1. Mild amount of thrombus as described above compatible with pulmonary emboli. 2. Liver masses most likely metastatic in etiology. This is an interval change from previous CT study of 02/09/14. 3. Other incidental findings as noted above. Diagnostic code #9 --- Addendum1 signed ---
[2018-10-07] MEDS ORDERED: Diltiazem 50 MG/10 ML SDV IVPUSH ONE ×2 (17:21→18:26)
[2018-10-07] MEDS ORDERED: Diltiazem 125 MG in Sodium Chloride 0.9% 100 ML IV SCH (17:30)
[2018-10-07] MEDS ORDERED: Heparin Sodium 5,000 Units/ML Vial IVPUSH ONE (19:57)
[2018-10-07] MEDS ORDERED: Heparin Sodium/D5W 25,000 UNITS/500 ML BAG IV ONE (19:59)
== END 2018-10-07 20:43 ==
LOC: JD.ED 13:55
DX: I26.99 Other pulmonary embolism without acute cor pulmonale (principal); C25.9 Malignant neoplasm of pancreas, unspecified; C78.7 Secondary malignant neoplasm of liver and intrahepatic bile duct; I48.92 Unspecified atrial flutter; I11.0 Hypertensive heart disease with heart failure; I50.9 Heart failure, unspecified; I25.10 Atherosclerotic heart disease of native coronary artery without angina pectoris; E11.9 Type 2 diabetes mellitus without complications; R79.89 Other specified abnormal findings of blood chemistry; Z79.899 Other long term (current) drug therapy; Z88.8 Allergy status to other drugs, medicaments and biological substances
CPT/HCPCS: 36415; 71045; 71275; 80053; 81001; 83605; 83735; 83880; 84443; 84484; 85007; 85027; 85379; 85610; 85730; 86140; 87040; 93005; 96361; 96365; 96366; 96375; 96376; 99285; J1644; J3490; J7030; J7040; Q9967; 93010

== ENCOUNTER 2018-10-24 00:03 | Emergency (ER) | payer MEDICARE, OTHER ==
[2018-10-24 00:24] VITALS: BP 192/82
[2018-10-24] MEDS ORDERED: Sodium Chloride 0.9% 10 ML Syringe FLUSH PRN (00:45)
[2018-10-24] MEDS ORDERED: Metoclopramide 10 MG/2 ML SDV IVPUSH ONE (00:45)
[2018-10-24] MEDS ORDERED: Sodium Chloride 0.9% 500 ML IV ONE ×3 (00:45→02:38)
[2018-10-24] MEDS ORDERED: HYDROmorphone 0.5 MG/0.5 ML Syringe ONE (01:10)
[2018-10-24] MEDS ORDERED: HYDROmorphone 1 MG/ML Syringe IVPUSH ONE ×2 (01:10→02:37)
--- NOTE | 2018-10-24 02:14 | EDM.PDOC ---
ED HPI GENERAL MEDICAL PROBLEM - General Chief Complaint: Abdominal Pain Stated Complaint: ABDOMINAL/CHEST AND HEAD PAIN Time Seen by Provider: 10/24/18 00:31 Source of Information: Reports: Patient, Family (spouse), RN Notes Reviewed - History of Present Illness INITIAL COMMENTS - FREE TEXT/NARRATIVE: 83 year old female comes in with upper abd pain that started last this past afternoon. She was feeling OK earlier today, had some breakfast and lunch without difficulty. She tried a little dinner this evening, started having severe upper mid abd pain with nausea, some dry heaves. She has hx of pancreatic cancer diagnosed about 5 yrs ago with mets to her liver. She has been on chemo, last treatment about 3 wks ago. She than also developed DVT LLE about 10 days ago now on eliquis. No chest pain today, cough or difficulty breathing. Abdominal Pain Score (Numeric/FACES): 7 - Related Data Allergies Allergy/AdvReac Type Severity Reaction Status Date / Time naproxen sodium [From Aleve] Allergy Anaphylactic Verified 10/24/18 00:18 Shock Sulfa (Sulfonamide Allergy Hives Verified 10/24/18 00:18 Antibiotics) dexamethasone AdvReac Headache Verified 10/24/18 00:18 Home Meds: Home Meds Levothyroxine 50 mcg PO DAILY 12/15/13 [History] Allopurinol [Zyloprim] 300 mg PO DAILY 01/10/16 [History] Aspirin 81 mg PO DAILY 01/10/16 [History] Metoprolol Succinate [Toprol XL] 50 mg PO DAILY 01/10/16 [History] Potassium Chloride 10 meq PO BID 01/10/16 [History] atorvaSTATin [Lipitor] 10 mg PO DAILY 01/10/16 [History] metFORMIN [Glucophage XR] 500 mg PO DAILY 01/10/16 [History] oxyCODONE 5 mg PO Q6H PRN 03/10/18 [History] Calcium Citrate/Vitamin D3 [Calcium Citrate - Vit D3 Tab] 250 - 315 mg PO DAILY 10/07/18 [History] Capecitabine 1,000 mg PO PCDINNER 10/07/18 [History] Capecitabine 1,500 mg PO PCBREAKFAST 10/07/18 [History] Garlic [Garlic Oil] 1,000 mg PO DAILY 10/07/18 [History] Ketamine Hcl [Ketamine Oral Solution Compound] 5 ml PO QID 10/07/18 [History] Lidocaine Viscous 5 ml PO Q6H PRN 10/07/18 [History] Loperamide [Imodium] 4 mg PO ASDIRECTED PRN 10/07/18 [History] Losartan [Cozaar] 50 mg PO BID 10/07/18 [History] Megestrol [Megace 40 MG/ML Susp] 800 mg PO DAILY 10/07/18 [History] Ondansetron [Zofran ODT] 4 mg PO TID PRN 10/07/18 [History] amLODIPine Besylate [Amlodipine Besylate] 5 mg PO DAILY 10/07/18 [History] Apixaban [Eliquis] 5 mg PO DAILY 10/24/18 [History] dilTIAZem HCl [Diltiazem 24Hr Cd] 120 mg PO DAILY 10/24/18 [History] Past Medical History HEENT History: Reports: Impaired Vision Other HEENT History: wears eyeglasses. Cardiovascular History: Reports: CAD, Heart Failure, Hypertension Respiratory History: Reports: Other (See Below) Other Respiratory History: states had adverse reaction to chemo, states lungs "were white." Genitourinary History: Reports: UTI, Recurrent RN ANESTHESIOLOGY History: Reports: Musculoskeletal History: Reports: Arthritis, Gout Endocrine/Metabolic History: Reports: Diabetes, Type II Other Endocrine/Metabolic History: states is borderline diabetic. 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 Immunologic History: Reports: Immunosuppression Oncologic (Cancer) History: Reports: Liver, Pancreatic Other Oncologic History: 06/2013 - Infectious Disease History Infectious Disease History: Reports: Chicken Pox, Measles, Mumps - Past Surgical History HEENT Surgical History: Reports: Cataract Surgery, Tonsillectomy GI Surgical History: Reports: Appendectomy Female Surgical History: Reports: Hysterectomy Endocrine Surgical History: Reports: Pituitary Tumor Resection Musculoskeletal Surgical History: Reports: Knee Replacement Social & Family History - Family History Cardiac: Reports: Bypass, CAD Neurological: Reports: CVA - Tobacco Use Smoking Status *Q: Unknown Ever Smoked - Caffeine Use Caffeine Use: Reports: Coffee, Tea ED ROS GENERAL - Review of Systems Review Of Systems: See Below Constitutional: Denies: Fever, Chills HEENT: Denies: Throat Pain Respiratory: Denies: Shortness of Breath Cardiovascular: Denies: Chest Pain GI/Abdominal: Reports: Abdominal Pain, Nausea, Vomiting. Denies: Diarrhea, Hematochezia, Melena : Reports: No Symptoms Musculoskeletal: Denies: Back Pain Skin: Reports: No Symptoms Neurological: Reports: Dizziness ED EXAM, GI/ABD - Physical Exam Exam: See Below General Appearance: Alert, Moderate Distress Eyes: Bilateral: Normal Appearance Throat/Mouth: Other (oral mucosa dry) Head: Atraumatic Neck: Supple, Full Range of Motion Respiratory/Chest: No Respiratory Distress, Lungs Clear, Normal Breath Sounds. No: Rhonchi, Wheezing GI/Abdominal Exam: Soft, Tender (moderate tenderness upper mid abd). No: Guarding, Rebound Back Exam: No: CVA Tenderness (L), CVA Tenderness (R) Extremities: Normal Inspection. No: Pedal Edema, Leg Pain, Increased Warmth, Redness Neurological: Alert, Oriented, No Motor/Sensory Deficits EKG INTERPRETATION EKG Date: 10/23/18 Rhythm: NSR [place]: Normal P-Wave: Present QRS: Normal ST-T: Normal QT: Normal Course - Vital Signs Last Recorded V/S: Last Vital Signs Temp 98.4 F 10/24/18 00:20 Pulse 60 10/24/18 00:20 Resp 16 10/24/18 00:20 BP 192/82 H 10/24/18 00:20 Pulse Ox 100 10/24/18 00:20 - Orders/Labs/Meds Orders: Active Orders 24 hr Category Date Time Status EKG Documentation Completion [RC] ASDIRECTED Care 10/24/18 00:26 Active Peripheral IV Care [RC] . DIRECTED Care 10/24/18 00:46 Active Abdomen 2V AP Flat Upright [CR] Stat Exams 10/24/18 01:53 Taken Sodium Chloride 0.9% [Saline Flush] Med 10/24/18 00:45 Active 10 ml FLUSH ASDIRECTED PRN Peripheral IV Insertion Adult [OM.PC] Stat Oth 10/24/18 00:45 Ordered EKG 12 Lead [EK] Stat Ther 10/24/18 00:26 Ordered Medication Orders Sodium Chloride (Saline Flush) 10 ml FLUSH ASDIRECTED PRN PRN Reason: Keep Vein Open Last Admin: 10/24/18 01:05 Dose: 10 ml Labs: Laboratory Tests 04/04/19 04/04/19 04/04/19 Range/Units 00:45 00:45 00:45 WBC 9.28 (3.98-10.04) K/mm3 RBC 3.23 L (3.98-5.22) M/mm3 Hgb 11.3 (11.2-15.7) gm/L Hct 32.1 L (34.1-44.9) % MCV 99.4 H (79.4-94.8) fl MCH 35.0 H (25.6-32.2) pg MCHC 35.2 (32.2-35.5) g/dl RDW Std Deviation 55.5 H (36.4-46.3) fL Plt Count 215 (182-369) K/mm3 MPV 11.7 (9.4-12.3) fl Neutrophils % (Manual) 67 H (40-60) % Band Neutrophils % 1 (0-10) % Lymphocytes % (Manual) 22 (20-40) % Atypical Lymphs % 0 % Monocytes % (Manual) 5 (2-10) % Eosinophils % (Manual) 4 (0.7-5.8) % Basophils % (Manual) 1 (0.1-1.2) Platelet Estimate Adequate Plt Morphology Comment Normal Polychromasia 1+ slight Microcytosis Few Macrocytosis Few Helmet Cells Few RBC Morph Comment Not Reportable Sodium 125 L (136-145) mEq/L Potassium 3.5 (3.5-5.1) mEq/L Chloride 91 L (98-107) mEq/L Carbon Dioxide 21 (21-32) mEq/L Anion Gap 16.5 H (5-15) BUN 7 (7-18) mg/dL Creatinine 0.8 (0.55-1.02) mg/dL Est Cr Clr Drug Dosing TNP Estimated GFR (MDRD) > 60 (>60) mL/min BUN/Creatinine Ratio 8.8 L (14-18) Glucose 120 H (83-115) mg/dL Calcium 8.7 (8.5-10.1) mg/dL Total Bilirubin 1.0 (0.2-1.0) mg/dL AST 58 H (15-37) U/L ALT 57 (14-59) U/L Alkaline Phosphatase 239 H (46-116) U/L C-Reactive Protein 3.1 H* (<1.0) mg/dL Total Protein 6.9 (6.4-8.2) g/dl Albumin 3.3 L (3.4-5.0) g/dl Globulin 3.6 gm/dL Albumin/Globulin Ratio 0.9 L (1-2) Lipase 105 (73-393) U/L Urine Color (Yellow) Urine Appearance (Clear) Urine pH (5.0-8.0) Ur Specific Conner (1.005-1.030) Urine Protein (Negative) Urine Glucose (UA) (Negative) Urine Ketones (Negative) Urine Occult Blood (Negative) Urine Nitrite (Negative) Urine Bilirubin (Negative) Urine Urobilinogen (0.2-1.0) Ur Leukocyte Esterase (Negative) Urine RBC (0-5) /hpf Urine WBC (0-5) /hpf Ur Epithelial Cells (0-5) /hpf Urine Bacteria (FEW) /hpf Urine Mucus (FEW) /hpf 10/24/18 Range/Units 01:20 WBC (3.98-10.04) K/mm3 RBC (3.98-5.22) M/mm3 Hgb (11.2-15.7) gm/L Hct (34.1-44.9) % MCV (79.4-94.8) fl MCH (25.6-32.2) pg MCHC (32.2-35.5) g/dl RDW Std Deviation (36.4-46.3) fL Plt Count (182-369) K/mm3 MPV (9.4-12.3) fl Neutrophils % (Manual) (40-60) % Band Neutrophils % (0-10) % Lymphocytes % (Manual) (20-40) % Atypical Lymphs % % Monocytes % (Manual) (2-10) % Eosinophils % (Manual) (0.7-5.8) % Basophils % (Manual) (0.1-1.2) Platelet Estimate Plt Morphology Comment Polychromasia Microcytosis Macrocytosis Helmet Cells RBC Morph Comment Sodium (136-145) mEq/L Potassium (3.5-5.1) mEq/L Chloride (98-107) mEq/L Carbon Dioxide (21-32) mEq/L Anion Gap (5-15) BUN (7-18) mg/dL Creatinine (0.55-1.02) mg/dL Est Cr Clr Drug Dosing Estimated GFR (MDRD) (>60) mL/min BUN/Creatinine Ratio (14-18) Glucose (83-115) mg/dL Calcium (8.5-10.1) mg/dL Total Bilirubin (0.2-1.0) mg/dL AST (15-37) U/L ALT (14-59) U/L Alkaline Phosphatase (46-116) U/L C-Reactive Protein (<1.0) mg/dL Total Protein (6.4-8.2) g/dl Albumin (3.4-5.0) g/dl Globulin gm/dL Albumin/Globulin Ratio (1-2) Lipase (73-393) U/L Urine Color Yellow (Yellow) Urine Appearance Clear (Clear) Urine pH 7.0 (5.0-8.0) Ur Specific Conner 1.015 (1.005-1.030) Urine Protein Negative (Negative) Urine Glucose (UA) Negative (Negative) Urine Ketones Negative (Negative) Urine Occult Blood Trace-intact H (Negative) Urine Nitrite Negative (Negative) Urine Bilirubin Negative (Negative) Urine Urobilinogen 0.2 (0.2-1.0) Ur Leukocyte Esterase Negative (Negative) Urine RBC 0-5 (0-5) /hpf Urine WBC Not seen (0-5) /hpf Ur Epithelial Cells 0-5 (0-5) /hpf Urine Bacteria Rare (FEW) /hpf Urine Mucus Not seen (FEW) /hpf Meds: Medications Generic Name Dose Route Start Last Admin Trade Name Freq PRN Reason Stop Dose Admin Sodium Chloride 10 ml 10/24/18 00:45 10/24/18 01:05 Saline Flush FLUSH 10 ml ASDIRECTED PRN Administration Keep Vein Open Discontinued Medications Generic Name Dose Route Start Last Admin Trade Name Freq PRN Reason Stop Dose Admin Hydromorphone HCl 0.5 mg 10/24/18 01:10 10/24/18 01:21 Dilaudid IVPUSH 10/24/18 01:11 0.5 mg ONETIME ONE Administration Hydromorphone HCl Confirm 10/24/18 01:10 10/24/18 01:22 Dilaudid Administered 10/24/18 01:11 Not Given Dose 0.5 mg .ROUTE .STK-MED ONE Hydromorphone HCl 0.5 mg 10/24/18 02:37 10/24/18 02:50 Dilaudid IVPUSH 10/24/18 02:38 0.5 mg ONETIME ONE Administration Sodium Chloride 500 mls @ 999 mls/hr 10/24/18 00:45 10/24/18 01:05 Normal Saline IV 10/24/18 01:15 999 mls/hr .BOLUS ONE Administration Sodium Chloride 500 mls @ 999 mls/hr 10/24/18 01:52 10/24/18 02:50 Normal Saline IV 10/24/18 02:22 999 mls/hr .BOLUS ONE Administration Sodium Chloride 500 mls @ 999 mls/hr 10/24/18 02:38 Normal Saline IV 10/24/18 03:08 .BOLUS ONE Metoclopramide HCl 5 mg 10/24/18 00:45 10/24/18 01:05 Reglan IVPUSH 10/24/18 00:46 5 mg ONETIME ONE Administration - Re-Assessments/Exams Free Text/Narrative Re-Assessment/Exam: 10/24/18 03:21 Feeling better after dilaudid, 1.5 liters NS. WBC normal, anion gap was mildly elevate. Na is low at 125. The NS given should help that. Flat and upright does show scattered gas but no air fluid levels. Discharge instr. as documented. Departure - Departure Time of Disposition: 03:00 Disposition: Home, Self-Care 01 Condition: Fair Clinical Impression: Abdominal pain Qualifiers: Abdominal location: generalized Qualified Code(s): R10.84 - Generalized abdominal pain - Discharge Information Referrals: PCP,Not In Area [Primary Care Provider] - Forms: ED Department Discharge Additional Instructions: rest, clear liquids only until this afternoon, than very careful bland diet as tolerated. Follow up with Dr Cid as planned. Zofran 4 mg q 6 to 8 hr if needed for nausea/vomiting or cramping. Stool softner once daily for the next 2 days and thereafter as needed. Return to ED if symptoms worsening in any way. - My Orders Last 24 Hours: My Active Orders 10/24/18 00:26 EKG Documentation Completion [RC] ASDIRECTED EKG 12 Lead [EK] Stat 10/24/18 00:45 Sodium Chloride 0.9% [Saline Flush] 10 ml FLUSH ASDIRECTED PRN Peripheral IV Insertion Adult [OM.PC] Stat 10/24/18 00:46 Peripheral IV Care [RC] . DIRECTED 10/24/18 01:53 Abdomen 2V AP Flat Upright [CR] Stat - Assessment/Plan Last 24 Hours: My Active Orders 10/24/18 00:26 EKG Documentation Completion [RC] ASDIRECTED EKG 12 Lead [EK] Stat 10/24/18 00:45 Sodium Chloride 0.9% [Saline Flush] 10 ml FLUSH ASDIRECTED PRN Peripheral IV Insertion Adult [OM.PC] Stat 10/24/18 00:46 Peripheral IV Care [RC] . DIRECTED 10/24/18 01:53 Abdomen 2V AP Flat Upright [CR] Stat
--- NOTE | 2018-10-24 06:47 | CR ---
Abdomen: Supine and upright views of the abdomen were obtained. Comparison: No prior abdominal x-ray. Scoliosis and degenerative change are noted within the spine. Calcifications are seen within the pelvis which are compatible with phleboliths. Bowel gas pattern appears within normal limits. No free air is seen. Impression: 1. Nothing acute is seen on two-view abdominal x-ray. Diagnostic code #1
== END 2018-10-24 04:22 | disposition home or self-care (01) ==
LOC: JD.ED 00:03
DX: R10.84 Generalized abdominal pain (principal); I11.0 Hypertensive heart disease with heart failure; I50.9 Heart failure, unspecified; E11.9 Type 2 diabetes mellitus without complications; I25.10 Atherosclerotic heart disease of native coronary artery without angina pectoris; Z79.84 Long term (current) use of oral hypoglycemic drugs; Z79.899 Other long term (current) drug therapy; Z88.8 Allergy status to other drugs, medicaments and biological substances; Z88.2 Allergy status to sulfonamides
CPT/HCPCS: 36415; 74019; 80053; 81001; 83690; 85007; 85027; 86140; 93005; 96361; 96374; 96375; 96376; 99284; J1170; J2765; J7040; 93010

== ENCOUNTER 2019-01-11 11:18 | Emergency (ER) | payer MEDICARE, OTHER ==
--- NOTE | 2019-01-11 11:34 | EDM.PDOC ---
ED HPI GENERAL MEDICAL PROBLEM - General Chief Complaint: Cardiovascular Problem Stated Complaint: SOB Time Seen by Provider: 01/11/19 11:28 Source of Information: Reports: Patient, RN Notes Reviewed History Limitations: Reports: No Limitations - History of Present Illness INITIAL COMMENTS - FREE TEXT/NARRATIVE: Patient is an 83-year-old female who presents to the ED for evaluation of increased shortness of breath. The patient has a history of metastatic pancreatic cancer that has metastisized to the liver, this is stage IV. She is currently seeing Dr. Cid as her oncologist, she notes her last round of chemotherapy was last month. She has an appointment with him on Sunday of this next week, 01/14/19. She states that over the last week she has been having some problems with increased shortness of breath with any sort of activity. She notes that the shortness of breath is better when she is at rest , and does not seem to be aggravated by positional changes at this time. She notes that she stayed in bed all yesterday, as she was unable to tolerate much activity at all. She notes a feeling of generalized fatigue as well. She had a small amount of left-sided chest pain that was focal, but this is not present at the current time. She denies any fevers/chills, current chest pain, lower leg edema, vomiting or diarrhea, any sort of dysuria or urinary frequency or urgency. She notes she has problems with chronic constipation, and is having some nausea, and does have some lower abdomen dull cramping aches. She denies any problems with COPD or asthma. She was a smoker, however has not had any cigarettes for 50+ years. Of note she states that she was diagnosed with a pulmonary embolus and a DVT roughly 2 months ago and subsequently placed on Eliquis. She states that she has been taking Eliquis as prescribed. Lower Abdomen Pain Score (Numeric/FACES): 8 - Related Data Allergies Allergy/AdvReac Type Severity Reaction Status Date / Time naproxen sodium [From Aleve] Allergy Anaphylactic Verified 10/24/18 00:18 Shock Sulfa (Sulfonamide Allergy Hives Verified 10/24/18 00:18 Antibiotics) dexamethasone AdvReac Headache Verified 10/24/18 00:18 Home Meds: Home Meds Allopurinol [Zyloprim] 300 mg PO DAILY 01/11/19 [History] Apixaban [Eliquis] 5 mg PO DAILY 01/11/19 [History] Calcium Citrate/Vitamin D3 [Calcium Cit-Vit D 315-200] 1 each PO DAILY 01/11/19 [History] Capecitabine 500 mg PO DAILY 01/11/19 [History] Diltiazem HCl [Diltiazem ER] 120 mg PO DAILY 01/11/19 [History] Garlic [Garlic Oil] 1,000 mg PO DAILY 01/11/19 [History] Levothyroxine [Synthroid] 50 mcg PO ACBREAKFAST 01/11/19 [History] Loperamide HCl [Loperamide] 4 mg PO ASDIRECTED PRN 01/11/19 [History] Losartan [Cozaar] 50 mg PO DAILY 01/11/19 [History] Megestrol Acetate 800 mg PO DAILY 01/11/19 [History] Metoprolol Succinate [Toprol XL 50mg] 50 mg PO DAILY 01/11/19 [History] Ondansetron [Zofran ODT] 8 mg PO TID PRN 01/11/19 [History] Potassium Chloride 10 meq PO DAILY 01/11/19 [History] Sucralfate [Carafate] 1 gm PO Q6HR PRN 01/11/19 [History] atorvaSTATin [Lipitor] 10 mg PO BEDTIME 01/11/19 [History] metFORMIN [Glucophage] 500 mg PO DAILY 01/11/19 [History] oxyCODONE 5 mg PO Q6HR PRN 01/11/19 [History] Past Medical History HEENT History: Reports: Impaired Vision Other HEENT History: wears eyeglasses. 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 Immunologic History: Reports: Immunosuppression Oncologic (Cancer) History: Reports: Liver, Pancreatic Other Oncologic History: 06/2013 - Infectious Disease History Infectious Disease History: Reports: Chicken Pox, Measles, Mumps - Past Surgical History HEENT Surgical History: Reports: Cataract Surgery, Tonsillectomy GI Surgical History: Reports: Appendectomy Female Surgical History: Reports: Hysterectomy Endocrine Surgical History: Reports: Pituitary Tumor Resection Musculoskeletal Surgical History: Reports: Knee Replacement Social & Family History - Family History Cardiac: Reports: Bypass, CAD Neurological: Reports: CVA - Caffeine Use Caffeine Use: Reports: Coffee, Tea ED ROS GENERAL - Review of Systems Review Of Systems: See Below Constitutional: Reports: Fatigue. Denies: Fever, Chills HEENT: Reports: No Symptoms Respiratory: Reports: Shortness of Breath. Denies: Wheezing, Cough Cardiovascular: Reports: Dyspnea on Exertion. Denies: Chest Pain, Edema, Orthopnea Endocrine: Reports: No Symptoms GI/Abdominal: Reports: Abdominal Pain (bilateral lower abd, dull, achy cramps), Constipation, Nausea. Denies: Diarrhea, Vomiting : Reports: No Symptoms Musculoskeletal: Reports: No Symptoms Skin: Reports: No Symptoms Neurological: Reports: No Symptoms Psychiatric: Reports: No Symptoms Hematologic/Lymphatic: Reports: No Symptoms Immunologic: Reports: No Symptoms ED EXAM, GENERAL - Physical Exam Exam: See Below Exam Limited By: No Limitations General Appearance: Alert, WD/WN, No Apparent Distress Eye Exam: Bilateral Eye: EOMI, Normal Inspection, PERRL Ears: Normal External Exam, Normal TMs Throat/Mouth: Normal Inspection, Normal Lips, Normal Teeth, Normal Gums, Normal Oropharynx, Normal Voice, No Airway Compromise Head: Atraumatic, Normocephalic Neck: Normal Inspection Respiratory/Chest: No Respiratory Distress, Lungs Clear, Normal Breath Sounds, No Accessory Muscle Use, Chest Non-Tender Cardiovascular: Normal Peripheral Pulses, Regular Rate, Rhythm, No Edema, No Murmur Peripheral Pulses: 3+: Radial (L), Radial (R) GI/Abdominal: Normal Bowel Sounds, Soft, No Distention, No Mass, Tender ( bilateral lower abdomen), Other (Heme + stool, normal fecal matter in color, no melena or hemtochezia). 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 Reviewed with Dr. Garcia. Course - Vital Signs Last Recorded V/S: Last Vital Signs Temp 97.9 F 01/11/19 16:05 Pulse 84 01/11/19 16:05 Resp 16 01/11/19 16:05 BP 135/98 H 01/11/19 16:05 Pulse Ox 96 01/11/19 16:05 Orthostatic Blood Pressure [ 124/58 Standing] Orthostatic Blood Pressure [ 100/82 Sitting] Orthostatic Blood Pressure [ 139/59 Supine] - Orders/Labs/Meds Orders: Active Orders 24 hr Category Date Time Status EKG Documentation Completion [RC] STAT Care 01/11/19 11:45 Active Orthostatic Vital Signs [RC] ASDIRECTED Care 01/11/19 13:24 Active Peripheral IV Care [RC] . DIRECTED Care 01/11/19 12:46 Active Chest 2V [CR] Stat Exams 01/11/19 11:45 Taken Peripheral IV Insertion Adult [OM.PC] Routine Oth 01/11/19 12:45 Ordered Labs: Laboratory Tests 01/11/19 01/11/19 01/11/19 Range/Units 12:05 12:05 12:05 WBC 13.19 H (3.98-10.04) K/mm3 RBC 2.43 L (3.98-5.22) M/mm3 Hgb 7.9 L D (11.2-15.7) gm/L Hct 24.1 L (34.1-44.9) % MCV 99.2 H (79.4-94.8) fl MCH 32.5 H (25.6-32.2) pg MCHC 32.8 (32.2-35.5) g/dl RDW Std Deviation 92.0 H (36.4-46.3) fL Plt Count 194 (182-369) K/mm3 MPV 11.6 (9.4-12.3) fl Neutrophils % (Manual) 80 H (40-60) % Band Neutrophils % 0 (0-10) % Lymphocytes % (Manual) 15 L (20-40) % Atypical Lymphs % 0 % Monocytes % (Manual) 4 (2-10) % Eosinophils % (Manual) 1 (0.7-5.8) % Basophils % (Manual) 0 L (0.1-1.2) Platelet Estimate Adequate RBC Morph Comment Normal PT 16.6 H D (9.5-12.1) SECONDS INR 1.54 APTT 38 H D (24-31) SECONDS D-Dimer, Quantitative > 4.40 H (0.19-0.50) mg/L Sodium 135 L D (136-145) mEq/L Potassium 4.1 (3.5-5.1) mEq/L Chloride 100 (98-107) mEq/L Carbon Dioxide 20 L (21-32) mEq/L Anion Gap 19.1 H (5-15) BUN 17 (7-18) mg/dL Creatinine 1.1 H (0.55-1.02) mg/dL Est Cr Clr Drug Dosing 30.27 mL/min Estimated GFR (MDRD) 48 (>60) mL/min BUN/Creatinine Ratio 15.5 (14-18) Glucose 109 (83-115) mg/dL Calcium 8.5 (8.5-10.1) mg/dL Total Bilirubin 1.9 H (0.2-1.0) mg/dL AST 333 H (15-37) U/L ALT 212 H (14-59) U/L Alkaline Phosphatase 348 H (46-116) U/L Troponin I < 0.017 (0.00-0.056) ng/mL NT-Pro-B Natriuret Pep (0-450) pg/mL Total Protein 6.9 (6.4-8.2) g/dl Albumin 2.7 L (3.4-5.0) g/dl Globulin 4.2 gm/dL Albumin/Globulin Ratio 0.6 L (1-2) Urine Color (Yellow) Urine Appearance (Clear) Urine pH (5.0-8.0) Ur Specific [place] (1.005-1.030) Urine Protein (Negative) Urine Glucose (UA) (Negative) Urine Ketones (Negative) Urine Occult Blood (Negative) Urine Nitrite (Negative) Urine Bilirubin (Negative) Urine Urobilinogen (0.2-1.0) Ur Leukocyte Esterase (Negative) Urine RBC (0-5) /hpf Urine WBC (0-5) /hpf Ur Epithelial Cells (0-5) /hpf Urine Bacteria (FEW) /hpf Urine Mucus (FEW) /hpf 01/11/19 01/11/19 Range/Units 12:05 15:17 WBC (3.98-10.04) K/mm3 RBC (3.98-5.22) M/mm3 Hgb (11.2-15.7) gm/L Hct (34.1-44.9) % MCV (79.4-94.8) fl MCH (25.6-32.2) pg MCHC (32.2-35.5) g/dl RDW Std Deviation (36.4-46.3) fL Plt Count (182-369) K/mm3 MPV (9.4-12.3) fl Neutrophils % (Manual) (40-60) % Band Neutrophils % (0-10) % Lymphocytes % (Manual) (20-40) % Atypical Lymphs % % Monocytes % (Manual) (2-10) % Eosinophils % (Manual) (0.7-5.8) % Basophils % (Manual) (0.1-1.2) Platelet Estimate RBC Morph Comment PT (9.5-12.1) SECONDS INR APTT (24-31) SECONDS D-Dimer, Quantitative (0.19-0.50) mg/L Sodium (136-145) mEq/L Potassium (3.5-5.1) mEq/L Chloride (98-107) mEq/L Carbon Dioxide (21-32) mEq/L Anion Gap (5-15) BUN (7-18) mg/dL Creatinine (0.55-1.02) mg/dL Est Cr Clr Drug Dosing mL/min Estimated GFR (MDRD) (>60) mL/min BUN/Creatinine Ratio (14-18) Glucose (83-115) mg/dL Calcium (8.5-10.1) mg/dL Total Bilirubin (0.2-1.0) mg/dL AST (15-37) U/L ALT (14-59) U/L Alkaline Phosphatase (46-116) U/L Troponin I (0.00-0.056) ng/mL NT-Pro-B Natriuret Pep 1119 H (0-450) pg/mL Total Protein (6.4-8.2) g/dl Albumin (3.4-5.0) g/dl Globulin gm/dL Albumin/Globulin Ratio (1-2) Urine Color Yellow (Yellow) Urine Appearance Clear (Clear) Urine pH 6.0 (5.0-8.0) Ur Specific [place] 1.010 (1.005-1.030) Urine Protein 1+ H (Negative) Urine Glucose (UA) Negative (Negative) Urine Ketones Negative (Negative) Urine Occult Blood Negative (Negative) Urine Nitrite Negative (Negative) Urine Bilirubin Negative (Negative) Urine Urobilinogen 1.0 (0.2-1.0) Ur Leukocyte Esterase Trace H (Negative) Urine RBC 0-5 (0-5) /hpf Urine WBC 0-5 (0-5) /hpf Ur Epithelial Cells 0-5 (0-5) /hpf Urine Bacteria Not seen (FEW) /hpf Urine Mucus Rare (FEW) /hpf Meds: Medications Discontinued Medications Generic Name Dose Route Start Last Admin Trade Name Freq PRN Reason Stop Dose Admin Heparin Sodium (Porcine) 500 units 01/11/19 15:59 01/11/19 16:10 Heparin Lock Flush 100 Units/Ml FLUSH 500 units ASDIRECTED PRN Administration de-access port Sodium Chloride 1,000 mls @ 500 mls/hr 01/11/19 12:46 01/11/19 13:35 Normal Saline IV 01/11/19 14:45 500 mls/hr ASDIRECTED ONE Administration Sodium Chloride 10 ml 01/11/19 12:45 01/11/19 13:35 Saline Flush FLUSH 10 ml ASDIRECTED PRN Administration Keep Vein Open - Re-Assessments/Exams Free Text/Narrative Re-Assessment/Exam: 01/11/19 11:54 Patient presents to the ED for evaluation of increased shortness of breath. Have ordered an EKG, chest x-ray, CBC, CMP, BNP, d-dimer, troponin, PTT, PT/INR , UA for further evaluation. She is not tachycardic, or hypoxemic, but she is mildly tachypneic at around 22 - 23 bpm. 01/11/19 12:49 Some labs are back and demonstrate a BNP of 1119, neg trop, increased anion gap of 19, and a mildly low CO2. Her chest x-ray does not demonstrate any diane of an infiltrate that would suggest increased fluid on the lungs. I have ordered some IVF for correction of these metabolic abnormalities. 01/11/19 13:24 More labs have returned, the d-dimer was elevated at 4.4, however she is our ED anticoagulated with Eliquis. I did discuss the case with Dr. 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 Her hemoglobin is 7.9. Prior records from [facility] noted a hemoglobin of 10 on 01/02/2019. At this time I did do a rectal exam, and was positive. It's likely that her shortness of breath and fatigue is due to a low hemoglobin level. She will be getting a bolus of IV fluids, 500 to start, and will assess the need for another 500 after the first is done, although it is likely that she would benefit from the full liter. I did talk with the patient regarding possibility of blood transfusion at this time versus watchful waiting, as the fluids might help increase her blood volume and allow her to gain some relief from these shortness of breath and fatigue symptoms. The patient notes that she has a appointment with Dr. Cid on Sunday, and would really like to wait until then if possible. I did order orthostatic vital signs to be done before the IV fluids have been started. 01/11/19 15:13 Pt has been given almost 750mL of IV fluid so far, UA is still pending, we are waiting on the results of that yet, otherwise she should be fine to discharge home with close follow up with Dr. Cid on Sunday for further management. 01/11/19 15:48 Patient's UA is negative for UTI at this time. We'll discharge the patient home with general recommendations. As noted above, the case was discussed with Dr. Garcia and he believes it is reasonable to discharge the patient home with close follow-up with Dr. Cid on Sunday. Departure - Departure Time of Disposition: 15:50 Disposition: Home, Self-Care 01 Condition: Fair Clinical Impression: Dyspnea on minimal exertion Anemia Qualifiers: Anemia type: unspecified type Qualified Code(s): D64.9 - Anemia, unspecified Instructions: Shortness of Breath, Adult Referrals: Isabell Berg MD [Primary Care Provider] - Forms: ED Department Discharge Additional Instructions: You have been evaluated in the ED today for your shortness of breath with exertion. Your chest x-ray, urinalysis, EKG and heart labs were within normal limits. Your hemoglobin was low at 7.9. You did receive IV fluids in correction of this. A low hemoglobin does explain why you might be feeling short of breath and generally fatigued. Recommend that you get a repeat hemoglobin level at your next visit with Dr. Cid as well. Your d-dimer level was high, this is a marker for any sort of clotting disorder such as PE or DVT. You are on Eliquis, and do not require any further increase of medication for this. Your BNP was also high, this is a marker for excessive fluid. Your chest x-ray did not demonstrate any signs of extra fluid on the heart or lungs. Please follow up with Dr. Cid on Sunday as previously scheduled, for further evaluation. Please return to the ED if your symptoms should change or worsen. - My Orders Last 24 Hours: My Active Orders 01/11/19 11:45 EKG Documentation Completion [RC] STAT Chest 2V [CR] Stat 01/11/19 12:45 Peripheral IV Insertion Adult [OM.PC] Routine 01/11/19 12:46 Peripheral IV Care [RC] . DIRECTED 01/11/19 13:24 Orthostatic Vital Signs [RC] ASDIRECTED - Assessment/Plan Last 24 Hours: My Active Orders 01/11/19 11:45 EKG Documentation Completion [RC] STAT Chest 2V [CR] Stat 01/11/19 12:45 Peripheral IV Insertion Adult [OM.PC] Routine 01/11/19 12:46 Peripheral IV Care [RC] . DIRECTED 01/11/19 13:24 Orthostatic Vital Signs [RC] ASDIRECTED
[2019-01-11] MEDS ORDERED: Sodium Chloride 0.9% 10 ML Syringe FLUSH PRN (12:45)
[2019-01-11] MEDS ORDERED: Sodium Chloride 0.9% 1,000 ML IV ONE (12:46)
[2019-01-11 16:24] VITALS: BP 135/98
--- NOTE | 2019-01-13 11:07 | CR ---
Chest: Two views of the chest were obtained. Comparison: Prior chest x-ray of 10/07/18. Heart size is slightly enlarged. Moderate tortuosity of the thoracic aorta is seen. Left-sided infusion port is seen. Lungs show no acute-appearing parenchymal change. Impression: 1. Mild cardiomegaly and other findings. Nothing acute is definitely appreciated. Diagnostic code #2
== END 2019-01-11 16:15 | disposition home or self-care (01) ==
LOC: JD.ED 11:18
DX: R06.02 Shortness of breath (principal); D64.9 Anemia, unspecified; I11.0 Hypertensive heart disease with heart failure; I50.9 Heart failure, unspecified; E11.9 Type 2 diabetes mellitus without complications; I25.10 Atherosclerotic heart disease of native coronary artery without angina pectoris; Z79.84 Long term (current) use of oral hypoglycemic drugs; Z79.899 Other long term (current) drug therapy; Z88.2 Allergy status to sulfonamides; Z88.8 Allergy status to other drugs, medicaments and biological substances
CPT/HCPCS: 36415; 71046; 80053; 81001; 83880; 84484; 85007; 85027; 85379; 85610; 85730; 93005; 96360; 96361; 99285; J1642; J7040; 93010; 99284